=== PATIENT | male | born 1960 | race Hispanic/Latino ===

== ENCOUNTER 2022-12-07 08:28 | Inpatient (IN) | payer OTHER ==
[~2022-12-07] VITALS: Ht 154.9 cm; Wt 53.8 kg
[2022-12-07 09:16] LABS: APPEARANCE,URINE CLEAR (CLEAR); BILIRUBIN,URINE NEGATIVE (NEGATIVE); COLOR,URINE COLORLESS (YELLOW); GLUCOSE, URINE (UA) NEGATIVE (NEGATIVE); KETONES,URINE NEGATIVE (NEGATIVE); LEUKOCYTE ESTERASE ,URINE NEGATIVE Leu/uL (NEGATIVE); NITRATE,URINE NEGATIVE (NEGATIVE); OCCULT BLOOD,URINE NEGATIVE (NEGATIVE); PH,URINE 6.5 (5.0-8.0); PROTEIN,URINE NEGATIVE (NEGATIVE); UROBILINOGEN,URINE 0.2 mg/dL (0.2-1.0)
[2022-12-07 09:19] LABS: ADD UA MICROSCOPIC NO
[2022-12-07 09:42] LABS: BASOPHILS # (AUTO) 0.03 K/uL (0.00-0.20); BASOPHILS % (AUTO) 0.4 % (0.0-5.0); EOSINOPHILS # (AUTO) 0.05 K/uL (0.00-0.70); EOSINOPHILS % (AUTO) 0.6 % (0.0-8.0); HEMATOCRIT 39.8 % (42-54); IMMATURE GRANULOCYTE ABSOLUTE 0.02 K/uL (0-1); LYMPHOCYTES # (AUTO) 1.8 K/uL (1.0-4.8); LYMPHOCYTES % (AUTO) 21.4 % (21.0-51.0); MEAN CORPUSCULAR HGB CONC 34.2 g/dL (32.0-36.0); MEAN CORPUSCULAR VOLUME 90.7 fL (79-99); MONOCYTES # (AUTO) 0.5 K/uL (0.1-1.0); MONOCYTES % (AUTO) 5.7 % (3.0-13.0); NEUTROPHILS % (AUTO) 71.7 % (40.0-77.0); PLATELET COUNT (AUTO) 197 K/uL (130-400); RED BLOOD CELL COUNT(AUTO) 4.39 MIL/uL (4.50-6.20); RED CELL DISTRIBUTION WIDTH 12.6 % (11.0-15.5); WHITE BLOOD COUNT (AUTO) 8.4 K/uL (4.8-10.8)
[2022-12-07 09:55] LABS: CREATININE 1.1 mg/dL (0.5-1.5); POTASSIUM 4.1 mmol/L (3.5-5.1)
[2022-12-07 09:59] LABS: ALBUMIN 4.1 g/dL (3.5-5.0); BILIRUBIN,TOTAL 0.6 mg/dL (0.2-1.0); TOTAL PROTEIN, SERUM 7.3 g/dL (6.0-8.3)
[2022-12-07] MEDS ORDERED: ONDANSETRON 4MG INJ IVP ONE (10:00)
[2022-12-07] MEDS ORDERED: LACTATED RINGERS 1000ML 1,000 ML IV ONE (10:00)
[2022-12-07] MEDS ORDERED: MORPHINE 2 MG SYG IVP ONE ×2 (10:00→21:00)
[2022-12-07] MEDS ORDERED: IOHEXOL-350 75 ML VIAL IV ONE (11:12)
[2022-12-07 13:11] LABS: AMPHET/METH SCREEN,URINE NEGATIVE (NEGATIVE); BARBITURATE SCREEN, URINE NEGATIVE (NEGATIVE); BENZODIAZEPINES SCREEN,URINE NEGATIVE (NEGATIVE); CANNABINOID SCREEN,URINE NEGATIVE (NEGATIVE); COCAINE SCREEN,URINE NEGATIVE (NEGATIVE); OPIATE SCREEN,URINE NEGATIVE (NEGATIVE); PHENCYCLIDINE SCREEN,URINE NEGATIVE (NEGATIVE)
[2022-12-07] MEDS ORDERED: ACETAMINOPHEN 500 MG TABLET PO PRN (15:00)
[2022-12-07] MEDS ORDERED: ONDANSETRON 4MG INJ IVP PRN (15:00)
[2022-12-07 16:22] LABS: HEMOGLOBIN A1C 5.9 % (4.0-6.0)
[2022-12-07 16:30] LABS: THYROID STIMULATING HORMONE 2.25 uIU/mL (0.36-3.74)
[2022-12-07] MEDS: LACTATED RINGERS 1000ML 1,000 ML IV SCH (16:39)
[2022-12-07] MEDS: PANTOPRAZOLE 40 MG/VIAL IVP SCH (16:40)
[2022-12-07] MEDS: ASPIRIN 81MG CHEW TAB PO SCH (16:40)
[2022-12-07 17:03] LABS: INR < 0.93 (0.85-1.15); PROTHROMBIN TIME 10.4 SEC (9.6-11.6)
[2022-12-07 17:05] LABS: PARTIAL THROMBOPLASTIN TIME 25.8 SEC (26.3-35.5)
[2022-12-07] MEDS ORDERED: HYDRALAZINE 20MG/ML VIAL IV PRN (17:30)
[2022-12-07] MEDS: NIFEDIPINE ER 30 MG TAB PO SCH (17:31)
[2022-12-07] MEDS: ATORVASTATIN 40 MG TABLET PO SCH (20:54)
[2022-12-07] MEDS: LOSARTAN 50 MG TABLET PO SCH (20:54)
[2022-12-07 21:30] VITALS: BP 172/84; PULSE 61; RESP 16; O2SAT 100
[2022-12-07 22:13] VITALS: BP 133/63; PULSE 58
[2022-12-08] VITALS (8 sets, daily range): BP systolic 134–181; BP diastolic 70–91; PULSE 60–73; RESP 14–20; O2SAT 100
[2022-12-08] MEDS: LACTATED RINGERS 1000ML 1,000 ML IV SCH ×2 (04:29→19:36)
[2022-12-08 09:01] LABS: BASOPHILS # (AUTO) 0.03 K/uL (0.00-0.20); BASOPHILS % (AUTO) 0.5 % (0.0-5.0); EOSINOPHILS # (AUTO) 0.09 K/uL (0.00-0.70); EOSINOPHILS % (AUTO) 1.6 % (0.0-8.0); HEMATOCRIT 38.3 % (42-54); IMMATURE GRANULOCYTE ABSOLUTE 0.01 K/uL (0-1); LYMPHOCYTES # (AUTO) 1.3 K/uL (1.0-4.8); LYMPHOCYTES % (AUTO) 22.5 % (21.0-51.0); MEAN CORPUSCULAR HEMOGLOBIN 31.1 pg (27.0-33.0); MEAN CORPUSCULAR HGB CONC 34.7 g/dL (32.0-36.0); MEAN CORPUSCULAR VOLUME 89.5 fL (79-99); MONOCYTES # (AUTO) 0.3 K/uL (0.1-1.0); MONOCYTES % (AUTO) 5.5 % (3.0-13.0); NEUTROPHILS # (AUTO) 3.9 K/uL (1.8-7.7); NEUTROPHILS % (AUTO) 69.7 % (40.0-77.0); PLATELET COUNT (AUTO) 204 K/uL (130-400); RED BLOOD CELL COUNT(AUTO) 4.28 MIL/uL (4.50-6.20); RED CELL DISTRIBUTION WIDTH 12.7 % (11.0-15.5); WHITE BLOOD COUNT (AUTO) 5.7 K/uL (4.8-10.8)
[2022-12-08 09:12] LABS: CREATININE 0.9 mg/dL (0.5-1.5); MAGNESIUM 1.8 mg/dL (1.80-2.40); POTASSIUM 3.6 mmol/L (3.5-5.1)
[2022-12-08] MEDS ORDERED: POTASSIUM CHLORIDE 20MEQ/100ML 100 ML IV PRN (09:30)
[2022-12-08] MEDS ORDERED: POTASSIUM CHLORIDE 10% ELIXIR 20 MEQ/15 ML UDCUP PO PRN (09:30)
[2022-12-08] MEDS ORDERED: KCL 20 MEQ ERTAB PO PRN (09:30)
[2022-12-08] MEDS ORDERED: MAGNESIUM 2GM PREMIX 50ML 50 ML IV SCH (09:30)
[2022-12-08] MEDS ORDERED: HEPARIN 5,000 UNIT VIAL SQ SCH (11:00)
[2022-12-08] MEDS ORDERED: HEPARIN 5,000 UNIT VIAL SQ PRN (11:30)
[2022-12-08] MEDS ORDERED: HEPARIN 25,000 UNITS/250ML D5W 250 ML IV SCH (11:30)
[2022-12-08] MEDS: LACTULOSE 20 GM/30 ML UDCUP PO PRN (12:17)
[2022-12-08] MEDS: PANTOPRAZOLE 40 MG/VIAL IVP SCH (16:50)
[2022-12-08] MEDS: ASPIRIN 81MG CHEW TAB PO SCH (16:50)
[2022-12-08] MEDS: NIFEDIPINE ER 30 MG TAB PO SCH (16:50)
[2022-12-08] MEDS ORDERED: HALOPERIDOL INJ 5 MG/ML VIAL IM SCH (20:30)
[2022-12-08] MEDS: ATORVASTATIN 40 MG TABLET PO SCH (20:31)
[2022-12-08] MEDS: LOSARTAN 50 MG TABLET PO SCH (20:31)
[2022-12-09] VITALS (8 sets, daily range): BP systolic 105–147; BP diastolic 62–84; PULSE 63–86; RESP 16–18; O2SAT 100
[2022-12-09 04:04] LABS: BASOPHILS # (AUTO) 0.04 K/uL (0.00-0.20); BASOPHILS % (AUTO) 0.6 % (0.0-5.0); EOSINOPHILS # (AUTO) 0.16 K/uL (0.00-0.70); EOSINOPHILS % (AUTO) 2.2 % (0.0-8.0); HEMATOCRIT 40.8 % (42-54); IMMATURE GRANULOCYTE ABSOLUTE 0.03 K/uL (0-1); LYMPHOCYTES # (AUTO) 2.7 K/uL (1.0-4.8); LYMPHOCYTES % (AUTO) 37.6 % (21.0-51.0); MEAN CORPUSCULAR HEMOGLOBIN 31.1 pg (27.0-33.0); MEAN CORPUSCULAR HGB CONC 33.8 g/dL (32.0-36.0); MEAN CORPUSCULAR VOLUME 91.9 fL (79-99); MONOCYTES # (AUTO) 0.6 K/uL (0.1-1.0); MONOCYTES % (AUTO) 8.4 % (3.0-13.0); NEUTROPHILS # (AUTO) 3.6 K/uL (1.8-7.7); NEUTROPHILS % (AUTO) 50.8 % (40.0-77.0); PLATELET COUNT (AUTO) 192 K/uL (130-400); RED BLOOD CELL COUNT(AUTO) 4.44 MIL/uL (4.50-6.20); RED CELL DISTRIBUTION WIDTH 12.4 % (11.0-15.5); WHITE BLOOD COUNT (AUTO) 7.1 K/uL (4.8-10.8)
[2022-12-09 04:18] LABS: CREATININE 1.1 mg/dL (0.5-1.5); MAGNESIUM 2.2 mg/dL (1.80-2.40); PHOSPHORUS 3.6 mg/dL (2.5-4.9); POTASSIUM 4.1 mmol/L (3.5-5.1)
[2022-12-09] MEDS: LACTATED RINGERS 1000ML 1,000 ML IV SCH (09:54)
[2022-12-09 10:45] LABS: SARS-CoV-2, RNA, NAAT NEGATIVE SARS CoV-2 (NEGATIVE)
[2022-12-09] MEDS: LACTULOSE 20 GM/30 ML UDCUP PO PRN (11:56)
[2022-12-09] MEDS: PANTOPRAZOLE 40 MG/VIAL IVP SCH (16:24)
[2022-12-09] MEDS: ASPIRIN 81MG CHEW TAB PO SCH (16:24)
[2022-12-09] MEDS: NIFEDIPINE ER 30 MG TAB PO SCH (16:24)
[2022-12-09] MEDS ORDERED: DiphenhydrAMINE HCL 50 MG/ML VIAL ONE (18:13)
[2022-12-09] MEDS ORDERED: DiphenhydrAMINE HCL 50 MG/ML VIAL IV ONE (18:30)
[2022-12-09] MEDS: ATORVASTATIN 40 MG TABLET PO SCH (20:13)
[2022-12-09] MEDS: LOSARTAN 50 MG TABLET PO SCH (20:13)
[2022-12-10] VITALS (9 sets, daily range): BP systolic 93–130; BP diastolic 56–79; PULSE 64–93; RESP 17–18; O2SAT 100
[2022-12-10] MEDS: LACTATED RINGERS 1000ML 1,000 ML IV SCH ×2 (00:12→14:30)
[2022-12-10 04:57] LABS: CREATININE 1.3 mg/dL (0.5-1.5); POTASSIUM 4.2 mmol/L (3.5-5.1)
[2022-12-10 05:33] LABS: HEMATOCRIT 38.7 % (42-54); MEAN CORPUSCULAR HEMOGLOBIN 31.7 pg (27.0-33.0); MEAN CORPUSCULAR HGB CONC 34.1 g/dL (32.0-36.0); RED BLOOD CELL COUNT(AUTO) 4.16 MIL/uL (4.50-6.20); RED CELL DISTRIBUTION WIDTH 12.6 % (11.0-15.5); WHITE BLOOD COUNT (AUTO) 5.9 K/uL (4.8-10.8)
[2022-12-10] MEDS ORDERED: BISACODYL 5 MG TABLET.DR PO SCH (11:00)
[2022-12-10] MEDS ORDERED: LACTULOSE 20 GM/30 ML UDCUP PO ONE ×2 (11:30→13:30)
[2022-12-10] MEDS ORDERED: DiphenhydrAMINE HCL 50 MG/ML VIAL IV ONE (15:30)
[2022-12-10] MEDS ORDERED: PEG 3350/NA SULF,BICARB,CL/KCL 4000 ML SOLN PO ONE (16:00)
[2022-12-10] MEDS: NIFEDIPINE ER 30 MG TAB PO SCH (17:40)
[2022-12-10] MEDS: ASPIRIN 81MG CHEW TAB PO SCH (17:40)
[2022-12-10] MEDS: PANTOPRAZOLE 40 MG/VIAL IVP SCH (17:41)
[2022-12-10] MEDS ORDERED: BISACODYL 5 MG TABLET.DR PO ONE (21:00)
[2022-12-10] MEDS: LOSARTAN 50 MG TABLET PO SCH (21:49)
[2022-12-10] MEDS: ATORVASTATIN 40 MG TABLET PO SCH (21:50)
[2022-12-11] VITALS (15 sets, daily range): BP systolic 102–150; BP diastolic 62–85; PULSE 68–95; RESP 12–20; O2SAT 100
[2022-12-11] MEDS: LACTATED RINGERS 1000ML 1,000 ML IV SCH ×2 (04:48→21:02)
[2022-12-11 07:09] LABS: CREATININE 1.1 mg/dL (0.5-1.5); POTASSIUM 3.9 mmol/L (3.5-5.1)
[2022-12-11] MEDS ORDERED: PROPOFOL 10 MG/ML 20ML VIAL IV ONE (15:35)
[2022-12-11] MEDS: ASPIRIN 81MG CHEW TAB PO SCH (17:14)
[2022-12-11] MEDS: PANTOPRAZOLE 40 MG/VIAL IVP SCH (17:14)
[2022-12-11] MEDS: NIFEDIPINE ER 30 MG TAB PO SCH (17:14)
[2022-12-11] MEDS: ATORVASTATIN 40 MG TABLET PO SCH (21:02)
[2022-12-11] MEDS: LOSARTAN 50 MG TABLET PO SCH (21:02)
[2022-12-12] VITALS (9 sets, daily range): BP systolic 122–154; BP diastolic 65–79; PULSE 64–75; RESP 18–20; O2SAT 97
[2022-12-12 05:31] LABS: BASOPHILS # (AUTO) 0.06 K/uL (0.00-0.20); EOSINOPHILS # (AUTO) 0.17 K/uL (0.00-0.70); EOSINOPHILS % (AUTO) 2.8 % (0.0-8.0); HEMATOCRIT 40.9 % (42-54); IMMATURE GRANULOCYTE ABSOLUTE 0.01 K/uL (0-1); LYMPHOCYTES # (AUTO) 2.1 K/uL (1.0-4.8); LYMPHOCYTES % (AUTO) 33.6 % (21.0-51.0); MEAN CORPUSCULAR HEMOGLOBIN 30.9 pg (27.0-33.0); MEAN CORPUSCULAR HGB CONC 33.3 g/dL (32.0-36.0); MONOCYTES # (AUTO) 0.5 K/uL (0.1-1.0); MONOCYTES % (AUTO) 8.5 % (3.0-13.0); NEUTROPHILS # (AUTO) 3.3 K/uL (1.8-7.7); NEUTROPHILS % (AUTO) 53.9 % (40.0-77.0); PLATELET COUNT (AUTO) 212 K/uL (130-400); RED CELL DISTRIBUTION WIDTH 12.4 % (11.0-15.5); WHITE BLOOD COUNT (AUTO) 6.1 K/uL (4.8-10.8)
[2022-12-12 06:17] LABS: ALBUMIN 3.7 g/dL (3.5-5.0); BILIRUBIN,TOTAL 0.9 mg/dL (0.2-1.0); CREATININE 0.9 mg/dL (0.5-1.5); MAGNESIUM 1.9 mg/dL (1.80-2.40); TOTAL PROTEIN, SERUM 6.5 g/dL (6.0-8.3)
[2022-12-12] MEDS: LACTATED RINGERS 1000ML 1,000 ML IV SCH ×2 (09:24→23:42)
[2022-12-12] MEDS: ASPIRIN 81MG CHEW TAB PO SCH (16:21)
[2022-12-12] MEDS: PANTOPRAZOLE 40 MG/VIAL IVP SCH (16:21)
[2022-12-12] MEDS: NIFEDIPINE ER 30 MG TAB PO SCH (16:21)
[2022-12-12] MEDS ORDERED: PEG 3350/NA SULF,BICARB,CL/KCL 4000 ML SOLN PO ONE (17:00)
[2022-12-12] MEDS: LOSARTAN 50 MG TABLET PO SCH (20:20)
[2022-12-12] MEDS: ATORVASTATIN 40 MG TABLET PO SCH (20:20)
[2022-12-12] MEDS ORDERED: NITROGLYCERIN 1GM OINT 1 INCH/1GM TD ONE (21:30)
[2022-12-12] MEDS ORDERED: MORPHINE 2 MG SYG IVP ONE (21:30)
[2022-12-13] VITALS (21 sets, daily range): BP systolic 119–154; BP diastolic 70–82; PULSE 66–99; RESP 16–22
[2022-12-13] MEDS ORDERED: PROPOFOL 10 MG/ML 20ML VIAL IV ONE (08:19)
[2022-12-13] MEDS ORDERED: PANT40TA PO (13:57)
[2022-12-13] MEDS ORDERED: POLY17PO4 PO (13:57)
[2022-12-13] MEDS ORDERED: LOSA-418 PO (13:57)
[2022-12-13] MEDS ORDERED: ATOR40TA69 PO (13:57)
[2022-12-13] MEDS ORDERED: NIFE-40 PO (13:57)
[2022-12-13] MEDS ORDERED: ASPI-1005 PO (13:57)
[2022-12-13] MEDS ORDERED: HYDR25SU11 PR (13:57)
[2022-12-13] MEDS: PANTOPRAZOLE 40 MG/VIAL IVP SCH (15:30)
[2022-12-13] MEDS: ASPIRIN 81MG CHEW TAB PO SCH (16:00)
[2022-12-13] MEDS ORDERED: HYDROCORTISONE 25 MG SUPPOSITORY PR SCH (21:00)
[2022-12-14] MEDS ORDERED: POLYETHYLENE GLYCOL 3350 17 GM POWD.PACK PO SCH (09:00)
== END 2022-12-13 16:25 | disposition home or self-care (01) | DRG 301 ==
LOC: EDH 08:28 → EDHIP 08:29 → UNDOADMIN 14:52 → EDHIP 14:52 → 2DH 21:33 → 3CH 12-10 12:13
PROVIDERS: ADMIT Internal Medicine; ATTEND Internal Medicine
PROC: 0DJD8ZZ Inspection of Lower Intestinal Tract, Via Natural or Artificial Opening Endoscopic (ICD-10-PCS; principal; 2022-12-11)
PROC: 0DJD8ZZ Inspection of Lower Intestinal Tract, Via Natural or Artificial Opening Endoscopic (ICD-10-PCS; 2022-12-13)
DX: I74.5 Embolism and thrombosis of iliac artery (principal); I51.3 Intracardiac thrombosis, not elsewhere classified; Z20.822 Contact with and (suspected) exposure to COVID-19; I73.9 Peripheral vascular disease, unspecified; E78.5 Hyperlipidemia, unspecified; I10 Essential (primary) hypertension; I16.0 Hypertensive urgency; D64.9 Anemia, unspecified; K29.60 Other gastritis without bleeding; K29.80 Duodenitis without bleeding; K59.00 Constipation, unspecified; F17.210 Nicotine dependence, cigarettes, uncomplicated; K64.8 Other hemorrhoids; Z79.899 Other long term (current) drug therapy; I77.819 Aortic ectasia, unspecified site
CPT/HCPCS: 36415; 45378; 71045; 74018; 74177; 76705; 80048; 80053; 80061; 80305; 81003; 82105; 82378; 82948; 83036; 83605; 83690; 83735; 84100; 84443; 84484; 85025; 85027; 85610; 85730; 87635; 93005; 93306; 93925; A4606; C9113; G0378; J1200; J1630; J1644; J2270; J2405; J2704; J3475; J7030; J7120; Q9967; A4215; A4216; A4221; A4222; A4223; A4620; A7002; J3490